=== PATIENT | male | born 1965 | race Caucasian/White ===

== ENCOUNTER 2016-09-11 10:26 | Emergency (ER) | payer MEDICAID, OTHER ==
[~2016-09-11] VITALS: Ht 167.6 cm; Wt 94.0 kg
[2016-09-11 10:52] VITALS: Ht 167.6 cm; Wt 94.0 kg
[2016-09-11] MEDS ORDERED: SODI126M NASAL (13:43)
[2016-09-11] MEDS ORDERED: GUAI473L22 PO (13:43)
--- NOTE | 2016-09-11 13:50 | ERD ---
ER Documentation Chief Complaint Date/Time DATE: 09/11/16 TIME: 13:45 Chief Complaint cough/congestion x 3 days HPI 42-year-old male complaining of sore throat, cough and nasal congestion 4 days. The cough is nonproductive. Patient reports feeling chills, temperature at home was 100.1. He has posttussive vomiting. He took Mucinex over-the- counter without improvement of cough. Patient also reports feeling dizzy. Denies shortness of breath. Denies abdominal pain, or diarrhea. No headache or neck pain. ROS All systems reviewed and are negative except as per history of present illness. Medications Home Meds Active Scripts Sodium Chloride (Saline Nasal Mist) 126 Ml Mist, 2 SPRAY NASAL Q2H Y for NASAL CONGESTION, #1 BOTTLE Prov:ERASTO GORDON. AUTOBODY TECHNICIAN 09/11/16 Guaifenesin-Codeine Phosphate* (Guaifenesin* AC Cough Syrup) 473 Ml Liquid, 10 ML PO Q4H Y for COUGH, #120 ML Prov:ERASTO GORDON. AUTOBODY TECHNICIAN 09/11/16 PMhx/Soc History of blood pressure and high cholesterol, denies history of diabetes. Physical Exam Vitals Vital Signs Date Time Temp Pulse Resp B/P Pulse Ox O2 Delivery O2 Flow Rate FiO2 09/11/16 10:52 98.3 85 20 117/84 98 Physical Exam General impression: Well-developed, well-nourished. Alert, oriented, in no acute distress Head: Normocephalic, atraumatic. Eyes: PERRL, EOM normal. Conjunctiva not injected. ENT: External canals clear. TM's pearly culp. Nasal mucosa erythematous and swollen. Oral mucosa normal. Oropharynx mildly erythematous without swelling or exudates Neck: Supple, nontender. No lymphadenopathy. No nuchal rigidity. Respiration: Normal respiratory effort. Lungs clear to auscultate bilaterally. No wheezes, rales or rhonchi. Cardiovascular: Regular rate and rhythm. No murmurs or extra heart sounds. Abdomen: Abdomen normal to inspection. Nontender. No masses or organomegaly. Bowel sounds normal. Neuro: Mental status normal, speech normal. 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 Skin: Normal turgor. No rash or lesions. Psych: Normal mood and affect. Procedures/MDM EKG: Normal sinus rhythm, normal axis. No ST segment elevation or depression. No ectopic beats. No QT prolongation. No other EKG abnormalities. EKG read by Dr. Fitzgerald. Patient is afebrile, in no respiratory distress. Lungs are clear to auscultate. I doubt that patient has pneumonia or bronchitis. Likely patient's symptoms are result of viral upper respiratory infection. Patient appears well, stable for discharge and outpatient management. Medical decision making shared with patient and family. Education provided to patient and family. Patient and family expressed understanding of the plan. Medications on discharge: Saline nasal spray, guaifenesin with codeine. Follow-up: Primary care provider in 2-3 days or return to ED if worse. Departure Diagnosis: Primary Impression: URI (upper respiratory infection) URI type: acute nasopharyngitis (common cold) Qualified Code: J00 - Acute nasopharyngitis Condition: Good Patient Instructions: Adult Self-Care for Colds [facility] Usted se saez hecho un examen mdico de control que le indica que no est en kwasi condicin que requiera tratamiento urgente en el Departamento de Emergencia. Un estudio ms profundo y el tratamiento de wiseman condicin pueden esperar sin ningn riesgo hasta que usted sea atendida/o en el consultorio de wiseman mdico o kwasi cl francisco. Es responsabilidad suya arreglar kwasi claudine para el seguimiento del bakari. MANEJO DE CONDICIONES NO URGENTES EN EL FUTURO 1) Si usted tiene un mdico de atencin primaria: Usted debera llamar a wiseman mdico de atencin primaria antes de venir al departamento de emergencia. Despus de las horas de consultorio, wiseman doctor o wiseman asociado/a est disponible por telfono. El mdico o enfermero de kathleen en el servicio telefnico puede asesorarle por cristian medio para atender el problema, o bakari contrario se puede programar kwasi claudine. 2) Si usted no tiene un mdico de atencin primaria: Llame al mdico o clnica de referencia que aparece abajo cinthia las horas de consultorio para hacer kwasi claudine para que le vean. CLINICAS: [facility] [phone] [facility] [phone] [facility] [phone] [place] [phone] [place] [phone] [facility]. [phone] [address] Additional Instructions: Llame al doctor MAANA y zi kwasi CLAUDINE PARA DENTRO DE 2-3 DUTTON.Dgale a la secretaria que nosotros le instruimos hacer esta claudine.Avise o llame si wiseman condicin se empeora antes de la claudine. Regresa aqui si peor o no mejor. ERASTO GORDON NP Sep 11, 2016 13:50
[2016-09-11 14:19] VITALS: TEMP 98.2
== END 2016-09-11 14:19 | disposition home or self-care (01) ==
LOC: FTE 10:26
DX: J00 Acute nasopharyngitis [common cold] (principal); R42 Dizziness and giddiness
CPT/HCPCS: 93005; Z7502